=== PATIENT | female | born 1945 | race Caucasian/White ===

== ENCOUNTER 2017-12-23 19:18 | Emergency (ER) | payer MEDICARE, OTHER ==
[~2017-12-23] VITALS: Ht 157.5 cm; Wt 104.0 kg
[2017-12-23 19:31] VITALS: BP 178/98; TEMP 36.9; Ht 157.5 cm; Wt 104.0 kg
[2017-12-23] MEDS ORDERED: MoRPHine SULFATE 10 MG/ML CARP/VIAL IM STA (19:31)
--- NOTE | 2017-12-23 20:05 | DIAGNOSTIC IMAGING REPORT ---
HEAD WITHOUT CONTRAST (CT) CLINICAL HISTORY: 72 years-old Female with fall hit head. Acute head injury status post fall TECHNIQUE: Multiple axial CT images of the head were obtained without contrast. A dose lowering technique was utilized adhering to the principles of ALARA. CT DOSE: 1016.38 mGy.cm COMPARISON: None. FINDINGS: No acute intracranial hemorrhage, midline shift, intracranial mass, hydrocephalus, territorial ischemia or abnormal extra-axial collection. Mild atrophy. Ill-defined areas of low-attenuation within the periventricular white matter of the cerebral hemispheres bilaterally suggest chronic microvascular ischemic changes. The calvarium is intact. The mastoid air cells, and middle ear cavities are clear. Mild mucosal thickening of the imaged maxillary sinuses. IMPRESSION: No acute intracranial abnormality or calvarial fracture. The above report was generated using voice recognition software. It may contain grammatical, syntax or spelling errors. Electronically signed by: Magdaleno Benton M.D. 12/23/2017 8:04 PM Dictated Date/Time: 12/23/2017 8:01 PM
--- NOTE | 2017-12-23 20:25 | DIAGNOSTIC IMAGING REPORT ---
CERVICAL SPINE W/O CLINICAL HISTORY: 72 years-old Female with fall hit head. Acute neck injury status post trauma COMPARISON: CT head of same day. TECHNIQUE: Multiple axial CT images of the cervical spine were obtained without contrast. A dose lowering technique was utilized adhering to the principles of ALARA. FINDINGS: The C1 and C2 vertebral bodies are intact. There is mild convex left curvature of the cervical spine without acute fracture or subluxation identified. Least moderate multilevel intervertebral disc space narrowing, most pronounced at the C3-C4, C4-C5 and C6-C7 levels. Extensive posterior spondylitic spurring is noted, most pronounced at C4-C5, C5-C6 and C6-C7. Severe facet arthrosis is seen on the right at several levels, notably at C2-C3 and C5-C6. At the C6-C7 level there appears to be moderate central canal and moderate left foraminal narrowing. Moderate right-sided foraminal stenosis at C4-C5. Chondrocalcinosis of the disc spaces noted. Mastoid air cells and middle ear cavities are clear. Mild mucosal thickening of the inferior maxillary sinuses bilaterally. Imaged lung apices appear clear. Multinodular thyroid with nodules measuring up to 1.9 cm on the right. 1.8 cm nodule in the left contains internal calcifications. Atherosclerosis of the bilateral carotid bulbs. IMPRESSION: 1. No acute cervical spine fracture or subluxation. 2. Multilevel intervertebral disc space narrowing, endplate spurring and facet arthrosis as above. The above report was generated using voice recognition software. It may contain grammatical, syntax or spelling errors. Electronically signed by: Magdaleno Benton M.D. 12/23/2017 8:23 PM Dictated Date/Time: 12/23/2017 8:17 PM
--- NOTE | 2017-12-23 20:54 | DIAGNOSTIC IMAGING REPORT ---
R ELBOW MIN 3 VIEWS ROUTINE HISTORY: 72 years-old Female r elbow pain acute right elbow pain COMPARISON: None available TECHNIQUE: 3 views of the right elbow FINDINGS: The bones appear mildly demineralized. Marginal spurring is noted about the medial and lateral epicondyles of the distal humerus with additional spurring at the olecranon process. Radial head appears intact. No acute fracture, dislocation or large joint effusion identified. No opaque foreign body. IMPRESSION: No acute fracture or dislocation. The above report was generated using voice recognition software. It may contain grammatical, syntax or spelling errors. Electronically signed by: Magdaleno Benton M.D. 12/23/2017 8:53 PM Dictated Date/Time: 12/23/2017 8:52 PM
[2017-12-23] MEDS ORDERED: BIOT1CAP8 PO (20:57)
[2017-12-23] MEDS ORDERED: MULT-506 PO (20:57)
[2017-12-23] MEDS ORDERED: CLB100 PO (20:57)
[2017-12-23] MEDS ORDERED: CYAN500T PO (20:57)
[2017-12-23] MEDS ORDERED: CALC-51 PO (20:57)
[2017-12-23] MEDS ORDERED: CHOL1000 PO (20:57)
[2017-12-23] MEDS ORDERED: FE B28CA PO (20:57)
[2017-12-23] MEDS ORDERED: LISI-787 PO (20:57)
[2017-12-23] MEDS ORDERED: FLAX10007 PO (20:57)
--- NOTE | 2017-12-23 21:06 | DIAGNOSTIC IMAGING REPORT ---
R SHOULDER MIN 2 VIEWS ROUTINE, R HUMERUS MIN 2 VIEWS ROUTINE HISTORY: 72 years-old Female r shoulder pain acute right shoulder and right arm pain COMPARISON: Right elbow radiographs of same day TECHNIQUE: 2 views of the right shoulder and 2 views of the right humerus FINDINGS: SHOULDER: Study is limited secondary to positioning and body habitus. Soft tissue swelling is noted about the shoulder along with linear irregular lucencies within the region of the surgical neck and greater tuberosity suggesting acute nondisplaced fractures. Humeral head appears located within the glenoid fossa. Moderate glenohumeral and AC joint degenerative changes. Imaged lung osullivan appear clear. Atherosclerosis of the aorta. HUMERUS: No additional acute fracture or subluxation. IMPRESSION: 1. Limited study secondary to positioning and body habitus. 2. Acute nondisplaced fractures involve the proximal humerus, likely involving the surgical neck and greater tuberosity. Consider follow-up 3 view shoulder radiographs study with better positioning to further assess. The above report was generated using voice recognition software. It may contain grammatical, syntax or spelling errors. Electronically signed by: Magdaleno Benton M.D. 12/23/2017 9:05 PM Dictated Date/Time: 12/23/2017 9:02 PM
--- NOTE | 2017-12-23 21:08 | DIAGNOSTIC IMAGING REPORT ---
CHEST ONE VIEW PORTABLE HISTORY: 72 years-old Female fall acute chest trauma status post fall COMPARISON: Right shoulder radiographs of same day TECHNIQUE: Portable AP view of the chest FINDINGS: Cardiomediastinal and hilar silhouettes are within normal limits. Atherosclerosis of the aorta. There is no pneumothorax, pleural effusion, focal airspace consolidation or overt pulmonary edema. Degenerative changes are noted within the spine and bilateral shoulders. Acute comminuted fracture of the proximal right humerus is noted involving the humeral neck and greater tuberosity. IMPRESSION: 1. No acute process of the chest. 2. Acute comminuted fracture of the proximal right humerus. The above report was generated using voice recognition software. It may contain grammatical, syntax or spelling errors. Electronically signed by: Magdaleno Benton M.D. 12/23/2017 9:07 PM Dictated Date/Time: 12/23/2017 9:06 PM
[2017-12-23] MEDS ORDERED: OXYC1TAB3 PO (21:51)
[2017-12-23] MEDS ORDERED: OXYCODONE IR HOME PACK PO ONE (22:00)
[2017-12-23] MEDS ORDERED: ONDANSETRON HOME PACK 4MG OD TAB PO ONE (22:00)
[2017-12-23 22:22] VITALS: PULSE 83; O2SAT 96
--- NOTE | 2017-12-24 00:44 | EMERGENCY ROOM VISIT NOTE ---
History Report prepared by Jonna: [facility] Under the Supervision of: Dr. Salvador Givens D.O. First contact with patient: 19:20 Chief Complaint: FALL Stated Complaint: FALL/ R SHOULDER PAIN, EYE LAC History of Present Illness The patient is a 72 year old female who presents to the Emergency Room with complaints of constant right upper arm pain that began prior to arrival. The patient states that she was walking on the sidewalk when she tripped over the curb and fell forward. She reports that she hit her right arm and face. The patient states that since the incident, she has been experiencing right upper arm pain. She reports that she also has abrasions on her face. The patient denies taking blood thinners, loss of consciousness, headache, change in vision , fevers, chest pain, shortness of breath, abdominal pain, back pain, nausea, vomiting, diarrhea, pain with urination, and melena. Her only complaint is 10 out of 10 sharp stabbing right proximal humeral pain with movement. Source of History: patient Onset: prior to arrival Position: arm (right) Timing: constant Associated Symptoms: No LOC, No fevers, No headache, No chest pain, No SOB, No nausea, No vomiting, No abdominal pain, No back pain, No melena, No diarrhea , No urinary symptoms Review of Systems See HPI for pertinent positives & negatives. A total of 10 systems reviewed and were otherwise negative. Past Medical & Surgical Surgical Problems: (1) Hx of cholecystectomy (2) Hx of gastric bypass (3) Hx of tonsillectomy Family History FH: cancer FH: gallbladder disease Hypertension Social History Smokeless Tobacco Use: No Alcohol Use: occasionally Drug Use: none Marital Status: Housing Status: lives with significant other Occupation Status: retired Current/Historical Medications Scheduled Biotin (Biotin), 2 CAP PO DAILY Calcium Carbonate-Vitamin D (Calcium), 2 TAB PO DAILY Celecoxib (Celebrex), 1 CAP PO DAILY Cholecalciferol (Vitamin D3), 2 TAB PO DAILY Cyanocobalamin (Vitamin B-12), 2 TAB PO DAILY Fe Bisglycinate Chelate-Vit C- (Gentle Iron), 2 CAP PO DAILY Flaxseed (Linseed) (Flax Seed Oil), 2 CAP PO DAILY Lisinopril/Hctz (Zestoretic 20MG/12.5MG), 1 TAB PO DAILY Multivitamin (Multivitamin), 1 TAB PO DAILY Scheduled PRN Oxycodone Immediate Rel Tab (Roxicodone Ir), 5 MG PO Q6H PRN for Pain Allergies Coded Allergies: No Known Allergies (Unverified , 12/23/17) Physical Exam Vital Signs Date Time Temp Pulse Resp B/P (MAP) Pulse Ox O2 Delivery O2 Flow Rate FiO2 12/23/17 22:22 83 16 96 12/23/17 19:37 85 12/23/17 19:31 36.9 88 19 178/98 96 Room Air Physical Exam GENERAL: Sitting up in bed, mild distress, holding right arm at side flexed at 90 degrees at the elbow. HEAD: Small abrasion below right eyebrow. EYE EXAM: normal conjunctiva, PERRL and EOM's grossly intact OROPHARYNX: no exudate, no erythema, lips, buccal mucosa, and tongue normal and mucous membranes are moist EARS: TMs clear b/l NECK: supple, no nuchal rigidity, no adenopathy, non-tender CHEST: stable to compression anteriorly and posteriorly LUNGS: clear to auscultation. Normal chest wall mechanics HEART: no murmurs, S1 normal and S2 normal ABDOMEN: abdomen soft, non-tender, normo-active bowel sounds, no masses, no rebound or guarding. PELVIS: stable to compression anteriorly and posteriorly BACK: Back is symmetrical on inspection and there is no deformity, no midline tenderness, no CVA tenderness. UPPER EXTREMITIES: full active and passive range of motion of all joints without tenderness to palpation with exception of right shoulder with moderate tenderness to humerus, and elbow grasp and abduction. Flexion and extension at wrist and elbow intact. Radial pulses 2/4. Gross sensations intact. LOWER EXTREMITIES: full active and passive range of motion of all joints without tenderness to palpation NEURO EXAM: Normal sensorium, cranial nerves II-XII grossly intact, normal speech, no gross weakness of legs. GCS: 15. Medical Decision & Procedures ER Provider Diagnostic Interpretation: Radiology results as stated below per my review and the radiologist's interpretation: HEAD WITHOUT CONTRAST (CT) CLINICAL HISTORY: 72 years-old Female with fall hit head. Acute head injury status post fall TECHNIQUE: Multiple axial CT images of the head were obtained without contrast. A dose lowering technique was utilized adhering to the principles of ALARA. CT DOSE: 1016.38 mGy.cm COMPARISON: None. FINDINGS: No acute intracranial hemorrhage, midline shift, intracranial mass, hydrocephalus, territorial ischemia or abnormal extra-axial collection. Mild atrophy. Ill-defined areas of low-attenuation within the periventricular white matter of the cerebral hemispheres bilaterally suggest chronic microvascular ischemic changes. The calvarium is intact. The mastoid air cells, and middle ear cavities are clear. Mild mucosal thickening of the imaged maxillary sinuses. IMPRESSION: No acute intracranial abnormality or calvarial fracture. The above report was generated using voice recognition software. It may contain grammatical, syntax or spelling errors. Electronically signed by: Magdaleno Benton M.D. 12/23/2017 8:04 PM Dictated Date/Time: 12/23/2017 8:01 PM CERVICAL SPINE W/O CLINICAL HISTORY: 72 years-old Female with fall hit head. Acute neck injury status post trauma COMPARISON: CT head of same day. TECHNIQUE: Multiple axial CT images of the cervical spine were obtained without contrast. A dose lowering technique was utilized adhering to the principles of ALARA. FINDINGS: The C1 and C2 vertebral bodies are intact. There is mild convex left curvature of the cervical spine without acute fracture or subluxation identified. Least moderate multilevel intervertebral disc space narrowing, most pronounced at the C3-C4, C4-C5 and C6-C7 levels. Extensive posterior spondylitic spurring is noted, most pronounced at C4-C5, C5-C6 and C6-C7. Severe facet arthrosis is seen on the right at several levels, notably at C2-C3 and C5-C6. At the C6-C7 level there appears to be moderate central canal and moderate left foraminal narrowing. Moderate right-sided foraminal stenosis at C4-C5. Chondrocalcinosis of the disc spaces noted. Mastoid air cells and middle ear cavities are clear. Mild mucosal thickening of the inferior maxillary sinuses bilaterally. Imaged lung apices appear clear. Multinodular thyroid with nodules measuring up to 1.9 cm on the right. 1.8 cm nodule in the left contains internal calcifications. Atherosclerosis of the bilateral carotid bulbs. IMPRESSION: 1. No acute cervical spine fracture or subluxation. 2. Multilevel intervertebral disc space narrowing, endplate spurring and facet arthrosis as above. The above report was generated using voice recognition software. It may contain grammatical, syntax or spelling errors. Electronically signed by: Magdaleno Benton M.D. 12/23/2017 8:23 PM Dictated Date/Time: 12/23/2017 8:17 PM R SHOULDER MIN 2 VIEWS ROUTINE, R HUMERUS MIN 2 VIEWS ROUTINE HISTORY: 72 years-old Female r shoulder pain acute right shoulder and right arm pain COMPARISON: Right elbow radiographs of same day TECHNIQUE: 2 views of the right shoulder and 2 views of the right humerus FINDINGS: SHOULDER: Study is limited secondary to positioning and body habitus. Soft tissue swelling is noted about the shoulder along with linear irregular lucencies within the region of the surgical neck and greater tuberosity suggesting acute nondisplaced fractures. Humeral head appears located within the glenoid fossa. Moderate glenohumeral and AC joint degenerative changes. Imaged lung osullivan appear clear. Atherosclerosis of the aorta. HUMERUS: No additional acute fracture or subluxation. IMPRESSION: 1. Limited study secondary to positioning and body habitus. 2. Acute nondisplaced fractures involve the proximal humerus, likely involving the surgical neck and greater tuberosity. Consider follow-up 3 view shoulder radiographs study with better positioning to further assess. The above report was generated using voice recognition software. It may contain grammatical, syntax or spelling errors. Electronically signed by: Magdaleno Benton M.D. 12/23/2017 9:05 PM Dictated Date/Time: 12/23/2017 9:02 PM R SHOULDER MIN 2 VIEWS ROUTINE, R HUMERUS MIN 2 VIEWS ROUTINE HISTORY: 72 years-old Female r shoulder pain acute right shoulder and right arm pain COMPARISON: Right elbow radiographs of same day TECHNIQUE: 2 views of the right shoulder and 2 views of the right humerus FINDINGS: SHOULDER: Study is limited secondary to positioning and body habitus. Soft tissue swelling is noted about the shoulder along with linear irregular lucencies within the region of the surgical neck and greater tuberosity suggesting acute nondisplaced fractures. Humeral head appears located within the glenoid fossa. Moderate glenohumeral and AC joint degenerative changes. Imaged lung osullivan appear clear. Atherosclerosis of the aorta. HUMERUS: No additional acute fracture or subluxation. IMPRESSION: 1. Limited study secondary to positioning and body habitus. 2. Acute nondisplaced fractures involve the proximal humerus, likely involving the surgical neck and greater tuberosity. Consider follow-up 3 view shoulder radiographs study with better positioning to further assess. The above report was generated using voice recognition software. It may contain grammatical, syntax or spelling errors. Electronically signed by: Magdaleno Benton M.D. 12/23/2017 9:05 PM Dictated Date/Time: 12/23/2017 9:02 PM R ELBOW MIN 3 VIEWS ROUTINE HISTORY: 72 years-old Female r elbow pain acute right elbow pain COMPARISON: None available TECHNIQUE: 3 views of the right elbow FINDINGS: The bones appear mildly demineralized. Marginal spurring is noted about the medial and lateral epicondyles of the distal humerus with additional spurring at the olecranon process. Radial head appears intact. No acute fracture, dislocation or large joint effusion identified. No opaque foreign body. IMPRESSION: No acute fracture or dislocation. The above report was generated using voice recognition software. It may contain grammatical, syntax or spelling errors. Electronically signed by: Magdaleno Benton M.D. 12/23/2017 8:53 PM Dictated Date/Time: 12/23/2017 8:52 PM CHEST ONE VIEW PORTABLE HISTORY: 72 years-old Female fall acute chest trauma status post fall COMPARISON: Right shoulder radiographs of same day TECHNIQUE: Portable AP view of the chest FINDINGS: Cardiomediastinal and hilar silhouettes are within normal limits. Atherosclerosis of the aorta. There is no pneumothorax, pleural effusion, focal airspace consolidation or overt pulmonary edema. Degenerative changes are noted within the spine and bilateral shoulders. Acute comminuted fracture of the proximal right humerus is noted involving the humeral neck and greater tuberosity. IMPRESSION: 1. No acute process of the chest. 2. Acute comminuted fracture of the proximal right humerus. The above report was generated using voice recognition software. It may contain grammatical, syntax or spelling errors. Electronically signed by: Magdaleno Benton M.D. 12/23/2017 9:07 PM Dictated Date/Time: 12/23/2017 9:06 PM Medications Administered Medications (Trade) Dose Ordered Sig/Cherie Route Start Time Stop Time Status Last Admin Dose Admin Morphine Sulfate (MoRPHine SULFATE INJ) 8 mg NOW STAT IM 12/23/17 19:31 12/23/17 19:34 DC 12/23/17 19:54 8 MG Oxycodone HCl (Roxicodone Immediate Rel 5MG Home Pack) 1 homepack UD ONCE PO 12/23/17 22:00 12/23/17 22:01 DC 12/23/17 21:57 1 HOMEPACK ED Course ED COURSE: Vital signs were reviewed and showed hypertensive The patients medical record was reviewed The above diagnostic studies were performed and reviewed. ED treatments and interventions as stated above. 1922: The patient was evaluated in room A11A. A complete history and physical examination was performed. 1930: Ordered Morphine Sulfate 8 mg IM. 2045: I reevaluated the patient and she is doing well. 2143: Upon reevaluation, the patient is doing well. I discussed my findings with the patient and she understands and agrees with the treatment plan. Based on the patients age, coexisting illnesses, exam and lab findings the decision to treat as an outpatient was made. The patient remained stable while under my care. The patient appeared well at the time of discharge. 2199: Ordered Ondansetron HCl 1 homepack PO, Oxycodone HCl 1 homepack PO. Medical Decision Differential diagnoses include major intracranial, cervical, spinal, thoracic, abdominal, pelvic and neurologic injury. Fracture, contusion, sprain, strain, laceration, abrasions included as well. Patient is a 72-year-old female status post mechanical fall onto her right shoulder. She does have abrasion under her right eyebrow. CT of her head and cervical spine were unremarkable. X-rays of the shoulder do show a right proximal humeral head fracture. She is neurovascular intact. Patient was given IM morphine with improvement of her pain. She rested comfortably. She was concerned about going home requested the same for pain control. I recommended discharging with OxyIR's. I did give her instructions for constipation. She prefers to follow-up with her orthopedic surgeon at home in [place]. I felt this was reasonable. Discussed with Pt concerning signs and symptoms to watch out for. Pt was instructed to follow up with their PCP and discussed with the patient their option to return to the ED at anytime for persistent or worsening symptoms. The appropriate anticipatory guidance and out- patient management, including indications for return to the emergency department , were explained at length to the patient and understood. Head Trauma GCS Score: 15 Medication Reconcilliation Current Medication List: was personally reviewed by me Blood Pressure Screening Patient's blood pressure: Elevated blood pressure Blood pressure disposition: Elevated BP felt to be situational Impression Primary Impression: Fracture of head of right humerus Scribe Attestation The scribe's documentation has been prepared under my direction and personally reviewed by me in its entirety. I confirm that the note above accurately reflects all work, treatment, procedures, and medical decision making performed by me. Departure Information Dispostion Home / Self-Care Prescriptions Oxycodone Immediate Rel Tab (ROXICODONE IR) 5 Mg Tab 5 MG PO Q6H Y for Pain, #15 TAB Prov: GivensSalvador, DO 12/23/17 Forms HOME CARE DOCUMENTATION FORM, IMPORTANT VISIT INFORMATION Patient Instructions ED Fx Upper Ext, My [facility] Additional Instructions Please call your orthopedic surgeon tomorrow and explained to them that you have a nondisplaced right humeral head fracture and need to be seen as soon as possible. Please follow up with your primary care doctor with in the next 24 hours. Any worsening of your symptoms, please return to the ED immediately. This includes any weakness or numbness in her right upper extremity, worsening pain, chest pain, shortness breath, persistent nausea, vomiting, unable to eat or drink, or any other concerning signs or symptoms from your standpoint. You were given medications during this visit that will inhibit your ability to drive, operate machinery and work. Please do NOT drive, operate machinery or work for the next 12hrs. You were also given a prescription for a narcotic. While taking this medication you should also not drive, operate machinery and or work. For constipation Please take Colace 100 mg twice a day Please also take Senokot 10 mg daily When you do not have a bowel movement every 2-3 days with taking both his medications he will benefit from taking MiraLAX as instructed on the bottle. Problem Qualifiers Primary Impression: Fracture of head of right humerus Encounter type: initial encounter Fracture type: closed Qualified Codes: S42.291A - Other displaced fracture of upper end of right humerus, initial encounter for closed fracture
== END 2017-12-23 22:00 | disposition home or self-care (01) ==
LOC: C.EDA 19:21
DX: S42.291A Other displaced fracture of upper end of right humerus, initial encounter for closed fracture (principal); W18.09XA Striking against other object with subsequent fall, initial encounter